=== PATIENT | female | born 1985 | race Caucasian/White ===

== ENCOUNTER → 2017-04-17 | Outpatient (CLI) | payer OTHER | LOC: FIMAGING 12:37 | PROVIDERS: ATTEND Obstetrics & Gynecology | DX: O36.63X0 Maternal care for excessive fetal growth, third trimester, not applicable or unspecified (principal); O24.419 Gestational diabetes mellitus in pregnancy, unspecified control; Z3A.35 35 weeks gestation of pregnancy ==

== ENCOUNTER 2017-05-08 06:00 | Inpatient (IN) | payer OTHER ==
[2017-05-08] MEDS ORDERED: OLIVE OIL 118 ML BTL MISC PRN (06:19)
[2017-05-08] MEDS ORDERED: EPSOM SALT 454 GM TP PRN (06:19)
[2017-05-08] MEDS ORDERED: OXYTOCIN 20 UNIT in LR 1,000 ML IV PRN (06:19)
[2017-05-08] MEDS ORDERED: MISOPROSTOL 200 MCG TAB PR PRN (06:19)
[2017-05-08] MEDS ORDERED: TERBUTALINE SULFATE 1 MG/ML VIAL IV PRN (06:19)
[2017-05-08 07:23] LABS: PLATELET COUNT 250 10^3/uL (150-400)
[2017-05-08] MEDS ORDERED: LR 500 ML IV PRN (08:08)
--- NOTE | 2017-05-08 08:08 | PDGENHP ---
History and Physical History and Physical: HPI: Patient is a 31 yo that presents to L&D for IOL 2/2 A2GDM. She denies any regular contractions. She states she is having irregular contractions, but are more intense. She denies any LOF, VB. She reports +FM. She denies any headaches, visual changes, epigastric pain. She did not take her insulin last night and 1hr PP upon arrival to hospital today was 128. EDC: 05/21/17 which is based on LMP: 08/14/16 which is known and consistent with Ultrasound at 8 weeks. Her is complicated by: A2GDM, macrosomia (98th%@34wks), h/o PP depression Review of Systems: Constitutional: Denies any fever, chills, or fatigue HEENT: denies any visual changes, difficulty swallowing, hearing loss Cardiovascular: Denies any chest pain, palpitations, leg swelling Respiratory: denies any cough, wheezing, or shortness of breathe GI: Denies any nausea, vomiting, diarrhea, constipation : denies any dysuria, urgency, frequency, vaginal bleeding Musculoskeletal: denies any muscle or bone pain Skin: denies any rashes Neuro: denies any headache, seizures, lightheadedness, dizziness, or loss of consciousness Psychiatric: denies any depression, anxiety, or SI/HI thoughts HISTORY: Previous OB history: x1, 8#4 Past medical history: h/o GDM, h/o PPD Past surgical history: oral surgery, arthroscopic right wrist Medications: PNV, NPH insulin Allergies (list reaction): NKDA LABS: Rh: A+ ABS: Neg Rubella: Immune HbsAg: NR HIV: NR VDRL: NR 1hr: 133 GC: Neg Chlamydia: Neg Pap: Normal GBS: neg BMI: (prepreg) 23 PHYSICAL EXAM: Constitutional: WN, A&Ox3 HEENT: normocephalic atraumatic, supple Heart: RRR, no murmur Chest: CTA-B Abdomen: Soft, nontender, gravid SVE: 4/th/high Extremities: trace edema, negative homans sign Neuro: grossly normal Psych: normal affect assessment: Reassuring FHTs, baseline 130 +accels, no decels, moderate variability Contractions: toco q none Assessment: 1) 31 yo [id number] IUP@ 38-1wks (L/8) 2) IOL 2/2 A2GDM 3) GBS negative 4) Cat 1 FHR tracing Plan: 1) Admit to L&D 2) pitocin per protocol 3) AROM 4) BS q 2 hr 5) anticipate discussed with Shanta Rapp- agrees with POC
[2017-05-08] MEDS ORDERED: OXYTOCIN 30 UNIT in NS 500 ML IV SCH (08:15)
[2017-05-08] MEDS: LR 1,000 ML IV PRN ×2 (08:47→19:16)
[2017-05-08] MEDS ORDERED: OLIVE OIL 118 ML BTL ONE (09:15)
[2017-05-08] MEDS ORDERED: LIDOCAINE 1% 300 MG/30 ML SDV ONE (09:15)
[2017-05-08] MEDS ORDERED: OXYTOCIN 10 UNIT/ML VIAL ONE (09:16)
[2017-05-08] MEDS ORDERED: AMMONIA AROMATIC 1 EACH AMP IH ONE (09:16)
[2017-05-08] MEDS ORDERED: MISOPROSTOL 200 MCG TAB ONE (09:16)
--- NOTE | 2017-05-08 12:10 | PDMN ---
Medical Necessity Medical necessity: Patient meets inpatient criteria per CNM note and IOL.
--- NOTE | 2017-05-08 13:41 | OBPROG ---
Labor Progress Note Assessment/Plan: Assessment: [id number] IOL 2/2 A2GDM pitocin induction cat 1 FHR tracing GBS Negative impending macrosomia Plan: cont pitocin cont BS q2hr ARCADIO when increasing pain with contractions AROM once ARCADIO in place anticipate 05/08/17 13:39 05/08/17 14:02 Subjective/Intrapartum Course: 05/08/17 13:40 pt doing well, reports pain 5/10 with contractions. She is planning ARCADIO, requesting no exam or AROM until ARCADIO in place. FOB @ BS and supportive. She is breathing through contractions. Denies any LOF, VB. She reports +FM. Denies any headaches, visual changes, epigastric pain. 05/08/17 14:01 Objective: 05/08/17 06:30 Patient ABO/Rh A POSITIVE 05/08/17 06:30 - Contraction Pattern Assessment Current Contraction Pattern: Regular - FHR Assessment Jaramillo FHR (bpm): 135 FHR Pattern Variability: Moderate FHR Category: 1 CNM Assessment - Uterine Assessment Contraction Strength: Moderate Uterine Resting Tone: Palpates Soft Between Uterine Contractions Contraction Frequency (minutes): 2-3 Oxytocin Orders Assessment - Pre-Induction/Augmentation Assessment Indication: IOL 2/2 A2GDM Presentation: Vertex Gestational Age: 38 week(s) and 1 day(s) Estimated Weight: 4401g + Membrane Status: Intact Current Sterile Vaginal Exam (SVE): 4/th/high - Heart Rate Pattern Jaramillo FHR Category: 1 FHR Pattern Variability: Moderate FHR Accelerations: Present - Barkley's Score Dilation: 3-4cm Effacement: 0-30 Station: -3 Cervix: Medium Cervix Position: Posterior Barkley Score Total: 3 - Induction/Augmentation Consent Risks/Benefits of Procedure Reviewed/Pt Agrees to Proceed: Yes ICD10 Worksheet Patient Problems: Problems Problem Status Onset Delivery normal Acute Elective induction of labor planned Acute Gestational diabetes Acute
--- NOTE | 2017-05-08 13:45 | PREANESOB ---
Obstetric Pre-Anesthesia Info - General Info Proposed Procedure: ARCADIO NPO Start Time: 12:00 : 2 Para: 1 MILA: 05/21/17 Gestational Age: 38 week(s) and 1 day(s) - Info Status: Full Term FHR Pattern: Reassuring - Labor Status Cervical Dilation per last OB SVE: 4 Pitocin: In Use PIH: No Magnesium Sulfate in Use: No Indications for Labor Analgesia: Induction of Labor, Pain Control Labor Epidural: Proposed Anesthesia Allergies/Adverse Reactions: Allergy/AdvReac Type Severity Reaction Status Date / Time No Known Allergies Allergy Unverified 09/22/14 06:24 Home Medications: Medication Instructions Recorded 1 tab PO DAILY 09/22/14 Visit Medications: Generic Name Dose Route Start Last Admin Trade Name Freq PRN Reason Stop Dose Admin Lactated Ringer's 1,000 mls @ 0 mls/hr 05/08/17 06:19 05/08/17 08:47 Lr IV 05/09/17 06:18 1,000 mls PRN PRN Administration SEE PROTOCOL CONDITIONS Protocol Per Protocol Oxytocin 20 unit/ Lactated 1,002 mls @ 150 mls/hr 05/08/17 06:19 Ringer's IV PRN PRN Post- bleeding Lactated Ringer's 500 mls @ 500 mls/hr 05/08/17 08:08 Lr IV 05/09/17 08:08 PRN PRN Maternal Hypotension Oxytocin 30 unit/ Sodium 503 mls @ 0 mls/hr 05/08/17 08:15 05/08/17 08:46 Chloride IV 11/04/17 08:14 503 mls CONT ERIKA Administration Protocol Per Protocol Ibuprofen 600 mg 05/08/17 06:19 Motrin PO 11/04/17 06:18 Q6HRS PRN post , inflammation Magnesium Sulfate 454 gm 05/08/17 06:19 Epsom Salt TP 11/04/17 06:18 Q1H PRN perineal discomfort Misoprostol 800 - 1,000 mcg 05/08/17 06:19 Cytotec WI ONCE PRN Vaginal Atony/Bleeding Buffalo Oil 118 ml 05/08/17 06:19 Sweet Oil MISC 11/04/17 06:18 ONCE PRN perineal massage Terbutaline Sulfate 0.25 mg 05/08/17 06:19 Brethine IV 11/04/17 06:18 ONCE PRN Tachysystole Discontinued Medications Generic Name Dose Route Start Last Admin Trade Name Ghislaine PRN Reason Stop Dose Admin Ammonia (Aromatic Spirit) Confirm 05/08/17 09:16 Ammonia Aromatic Administered 05/08/17 09:17 Dose 1 each IH .STK-MED ONE Lidocaine HCl Confirm 05/08/17 09:15 Lidocaine Hcl 1% Administered 05/08/17 09:16 Dose 300 mg .ROUTE .STK-MED ONE Misoprostol Confirm 05/08/17 09:16 Cytotec Administered 05/08/17 09:17 Dose 1,000 mcg .ROUTE .STK-MED ONE Buffalo Oil Confirm 05/08/17 09:15 Sweet Oil Administered 05/08/17 09:16 Dose 118 ml .ROUTE .STK-MED ONE Oxytocin Confirm 05/08/17 09:16 Pitocin Administered 05/08/17 09:17 Dose 20 unit .ROUTE .STK-MED ONE - Anesthesia History Response to Local Anesthetics: Normal Anesthesia & Operative History: No Prior Problems Family Anesthesia History: Negative - Vital Signs Height/Weight (Nursing): Height 167.64 cm Weight 80.739 kg - Focused Exam Neck exam: FROM Mallampati Score: Class 2 Mouth exam: normal dental/mouth exam Pulmonary: no respiratory distress Cardiovascular: regular rate and rhythym Labs: 05/08/17 06:30 Patient ABO/Rh A POSITIVE 05/08/17 06:30 - Plan Anesthetic Plan: ARCADIO for induction of labor Consent Signed and on Chart: Yes Patient/Guardian Understands and Agrees to Plan: Yes Urgent/Emergent Case: Crystal young completed preop but documented later for safe timely pt care
[2017-05-08] MEDS ORDERED: BUPIVACAINE 0.5% 30 ML SDV ONE (13:58)
[2017-05-08] MEDS ORDERED: PHENYLEPHRINE HCL 100 MCG/ML SYR ONE (13:59)
[2017-05-08] MEDS ORDERED: NALOXONE HCL 0.4 MG/ML INJ IVP PRN (14:00)
[2017-05-08] MEDS ORDERED: fentaNYL 2MCG/ML/BUP 0.1% RTU 100 ML EP SCH (14:00)
[2017-05-08] MEDS ORDERED: METOCLOPRAMIDE 10 MG/2 ML VIAL IVP PRN (14:00)
[2017-05-08] MEDS ORDERED: PHENYLEPHRINE HCL 100 MCG/ML SYR IVP PRN (14:00)
[2017-05-08] MEDS ORDERED: LR 500 ML IV SCH (14:00)
[2017-05-08] MEDS ORDERED: ONDANSETRON 4 MG/2 ML VIAL IVP PRN (14:00)
[2017-05-08] MEDS ORDERED: fentaNYL 200 MCG, BUPIVACAINE 0.5% 20 ML in NS 100 ML EP SCH (14:30)
--- NOTE | 2017-05-08 14:48 | POSTANESTH ---
Post Anesthetic Evaluation Cardiovascular Status: Normal, Stable Respiratory Status: Normal, Stable Level of Consciousness/Mental Status: Can Participate in Eval Pain Control: Adequate, Prn Tx Ordered Nausea/Vomiting Control: Adequate, Prn Tx Ordered Complications Possibly Related to Anesthesia: None Noted
--- NOTE | 2017-05-08 18:29 | OBPROG ---
Labor Progress Note Assessment/Plan: Assessment: [id number] IOL 2/2 A2GDM pitocin induction cat 1 FHR tracing GBS Negative impending macrosomia Plan: cont pitocin cont BS q2hr labor down/reassess 1-2hr anticipate 05/08/17 13:39 05/08/17 14:02 05/08/17 18:28 05/08/17 18:29 Subjective/Intrapartum Course: 05/08/17 13:40 pt doing well, reports pain 5/10 with contractions. She is planning ARCADIO, requesting no exam or AROM until ARCADIO in place. FOB @ BS and supportive. She is breathing through contractions. Denies any LOF, VB. She reports +FM. Denies any headaches, visual changes, epigastric pain. 05/08/17 14:01 05/08/17 18:27 Pt doing well, reports feeling some contractions, denies any pressure. FOB @ BS Objective: 05/08/17 06:30 Patient ABO/Rh A POSITIVE 05/08/17 06:30 - SVE Dilation (cm): 9 Effacement (%): 75 Station: 0 Membranes: AROM Amniotic Fluid Color: Clear - Contraction Pattern Assessment Current Contraction Pattern: Regular - FHR Assessment Jaramillo FHR (bpm): 135 FHR Pattern Variability: Moderate FHR Category: 1 - Procedures Non-surgical Procedures: Amniotomy (@ 1535) - Physical Exam Estimated Weight: 4401g + Oxytocin Orders Assessment - Pre-Induction/Augmentation Assessment Presentation: Vertex Gestational Age: 38 week(s) and 1 day(s) Estimated Weight: 4401g + ICD10 Worksheet Patient Problems: Problems Problem Status Onset Delivery normal Acute Elective induction of labor planned Acute Gestational diabetes Acute
--- NOTE | 2017-05-09 00:33 | OBPROG ---
Labor Progress Note Assessment/Plan: Assessment: [id number] IOL 2/2 A2GDM pitocin induction cat 1 FHR tracing GBS Negative impending macrosomia Plan: cont pitocin cont BS q2hr cont pushing, if no descent will proceed with C/S Subjective/Intrapartum Course: 05/08/17 13:40 pt doing well, reports pain 5/10 with contractions. She is planning ARCADIO, requesting no exam or AROM until ARCADIO in place. FOB @ BS and supportive. She is breathing through contractions. Denies any LOF, VB. She reports +FM. Denies any headaches, visual changes, epigastric pain. 05/08/17 14:01 05/08/17 18:27 Pt doing well, reports feeling some contractions, denies any pressure. FOB @ BS 05/09/17 23:01 Pt feeling intermittent pain and pressure with contractions. She is comfortable with ARCADIO. FOB at BS and supportive. Aware that with last episode of pushing no descent was made. Will cont to push at this time. Objective: 05/08/17 06:30 Patient ABO/Rh A POSITIVE 05/08/17 06:30 - SVE Dilation (cm): 10 Effacement (%): 100 Station: 0 Membranes: AROM Amniotic Fluid Color: Clear - Contraction Pattern Assessment Current Contraction Pattern: Regular - FHR Assessment Jaramillo FHR (bpm): 155 FHR Pattern Variability: Moderate FHR Category: 2 - Procedures Non-surgical Procedures: Amniotomy (@ 1535) - Physical Exam Estimated Weight: 4401g + Oxytocin Orders Assessment - Pre-Induction/Augmentation Assessment Presentation: Vertex Gestational Age: 38 week(s) and 1 day(s) Estimated Weight: 4401g + ICD10 Worksheet Patient Problems: Problems Problem Status Onset Delivery normal Acute Elective induction of labor planned Acute Gestational diabetes Acute
[2017-05-09] MEDS: IBUPROFEN 600 MG TAB PO PRN ×4 (00:38→18:54)
--- NOTE | 2017-05-09 00:40 | OBDEL ---
Info Type: Vaginal Presentation at Delivery: Vertex L&D Analgesia/Anesthesia Type: Epidural GBS+: No Intrapartum Medications: Generic Name Dose Route Start Last Admin Trade Name Ghislaine PRN Reason Stop Dose Admin Lactated Ringer's 1,000 mls @ 0 mls/hr 05/08/17 06:19 05/08/17 19:16 Lr IV 05/09/17 06:18 1,000 mls PRN PRN Administration SEE PROTOCOL CONDITIONS Protocol Per Protocol Oxytocin 30 unit/ Sodium 503 mls @ 0 mls/hr 05/08/17 08:15 05/08/17 08:46 Chloride IV 11/04/17 08:14 503 mls CONT ERIKA Administration Protocol Per Protocol Fentanyl 200 mcg/ Bupivacaine 100 mls @ 0 mls/hr 05/08/17 14:30 05/08/17 20: 37 HCl 20 ml/ Sodium Chloride EP 05/18/17 14:29 100 mls CONT ERIKA Administration Protocol As Directed Ondansetron HCl 4 mg 05/08/17 14:00 05/08/17 19:14 Zofran IVP 05/09/17 13:59 4 mg Q4HRS PRN Administration Nausea/Vomiting, Can't Take PO Phenylephrine HCl 100 mcg 05/08/17 14:00 05/08/17 19:38 Neosynephrine IVP 11/04/17 13:59 100 mcg .Q2M PRN Administration Hypotension - Hospital Course Intrapartum: 05/08/17 13:40 pt doing well, reports pain 5/10 with contractions. She is planning ARCADIO, requesting no exam or AROM until ARCADIO in place. FOB @ BS and supportive. She is breathing through contractions. Denies any LOF, VB. She reports +FM. Denies any headaches, visual changes, epigastric pain. 05/08/17 14:01 05/08/17 18:27 Pt doing well, reports feeling some contractions, denies any pressure. FOB @ BS 05/09/17 23:01 Pt feeling intermittent pain and pressure with contractions. She is comfortable with ARCADIO. FOB at BS and supportive. Aware that with last episode of pushing no descent was made. Will cont to push at this time. Indications for Delivery: Diabetes Gestational Poorly Controlled Vaginal Delivery - Delivery Provider Delivery Physician/CNM: Kassi Womack - Labor and Delivery Onset of Contractions Date: 05/08/17 Onset of Contractions Type: Induced Rupture of Membranes Date: 05/08/17 Rupture of Membranes Type: Artificial Amniotic Fluid Color: Clear Dilation Complete Date: 05/08/17 Placenta Delivery Date: 05/09/17 Non-surgical Procedures: Amniotomy (@ 1535) Laceration: 1st Degree Repair: 3-0 Vaginal Sponge Count Correct: Yes Vaginal Needle Count Correct: Yes Vaginal Sweep Performed: Yes EBL: 300 - Medications Labor Augmentation/Induction Methods Used: Pitocin Labor Augmentation/Induction Indication: Gestational Diabetes Data MILA: 05/21/17 Gestational Age: 38 week(s) and 2 day(s) Jaramillo Delivery Date: 05/08/17 Delivery Time: 23:50 Sex of : Female Weight (gm): 4062 kg Score (1 Min): 4 Score (5 Min): 3 ICD10 Worksheet Patient Problems: Problems Problem Status Onset (spontaneous vaginal delivery) Acute Delivery normal Acute Elective induction of labor planned Acute Gestational diabetes Acute - ICD10 Problem Qualifiers (1) (spontaneous vaginal delivery)
[2017-05-09] MEDS ORDERED: SIMETHICONE 80 MG TAB CHEW PO PRN (02:25)
[2017-05-09] MEDS ORDERED: HYDROCORTISONE 0.5% CREAM TP PRN (02:25)
[2017-05-09] MEDS ORDERED: HYDROCODONE/APAP 5/325 TAB PO PRN (02:25)
[2017-05-09] MEDS: DOCUSATE SODIUM 100 MG CAP PO PRN ×2 (12:05→21:42)
[2017-05-09] MEDS: ACETAMINOPHEN 325 MG TAB PO PRN ×2 (14:22→20:57)
--- NOTE | 2017-05-09 16:22 | POSTANESTH ---
Post Anesthetic Evaluation Cardiovascular Status: Normal, Stable Respiratory Status: Normal, Stable Level of Consciousness/Mental Status: Alert and Oriented Pain Control: Adequate, Prn Tx Ordered Nausea/Vomiting Control: Adequate, Prn Tx Ordered Complications Possibly Related to Anesthesia: Other, See Comments (States she has persistent numbness/tingling in her whole right foot. Denies any weakness, PEREZ, neck stiffness, fever, chills. Paresthesias not in a dermatomal distribution ; unlikely to be 2/2 nerve injury; advised patient this should self-resolve and if it does not, she should contact us.)
--- NOTE | 2017-05-09 16:29 | OBPP ---
Progress Note Assessment/Plan: Assessment: PPD1 (delivered 2350 last night) s/p - IOL for A2GDM on insulin. Routine cares - doing great, likely home tomorrow. A2GDM - No need for PP checks or insulin. Will need 6wk 75g 2 hr GTT. RhoGam/Varivax/MMR if indicated. H/o PP depression, will monitor. ROMA 05/09/17 16:30 Subjective/ Course: 05/09/17 16:27 Feeling good, pain controlled, , up and around, tolerating diet. No BM yet, but voiding. Objective: 05/08/17 06:30 Patient ABO/Rh A POSITIVE 05/08/17 06:30 Temp Pulse Resp BP Pulse Ox 36.4 C 86 16 120/67 05/09/17 09:06 05/09/17 09:06 05/09/17 09:06 05/09/17 09:06 Uterine Position/Fundal Height: At Umbilicus Uterine Tone: Firm
[2017-05-10] MEDS: IBUPROFEN 600 MG TAB PO PRN ×2 (00:54→08:48)
[2017-05-10] MEDS: ACETAMINOPHEN 325 MG TAB PO PRN (04:54)
[2017-05-10 08:24] VITALS: BP 119/62
[2017-05-10] MEDS: DOCUSATE SODIUM 100 MG CAP PO PRN (08:52)
--- NOTE | 2017-05-10 08:57 | OBPP ---
Progress Note Assessment/Plan: Assessment: 31 yo PPD #2 s/p - doing well. Plan: DC home today. DC instructions reviewed. Ssx pp depression reviewed. Encouraged to meet with therapist. See DC summary. 05/10/17 08:54 Subjective/ Course: 05/09/17 16:27 Feeling good, pain controlled, , up and around, tolerating diet. No BM yet, but voiding. 05/10/17 08:53 Doing well. Ambulating, voiding, and saravanan reg diet without issue. Still has some numbness in R foot, but has significantly improved - was evaluated by anesthesiologist yesterday. Desires homegoing today. Hx of depression and PTSD , does have her own therapist. Objective: 05/10/17 05:00 Patient ABO/Rh A POSITIVE 05/08/17 06:30 Temp Pulse Resp BP Pulse Ox 36.6 C 94 16 119/62 93 05/10/17 08:00 05/10/17 08:00 05/10/17 08:00 05/10/17 08:00 05/10/17 08:00 gen - pleasant female, NAD cv - rrr chest - ctab ext - calves NT, trace edema 1 hour postprandial sugar about to be checked. Uterine Position/Fundal Height: Umbilicus -3 Uterine Tone: Firm
--- NOTE | 2017-05-19 03:06 | OBGCSDC ---
General Delivery Information - General Info : 2 Para: 2 Abortions: 0 Type: Vaginal L&D Analgesia/Anesthesia Type: Epidural Admission Date: 05/08/17 Labs: Patient ABO/Rh A POSITIVE 05/08/17 06:30 Hct 38.6 % (38.0-47.0) 05/10/17 05:00 - Hospital Course Intrapartum: 05/08/17 13:40 pt doing well, reports pain 5/10 with contractions. She is planning ARCADIO, requesting no exam or AROM until ARCADIO in place. FOB @ BS and supportive. She is breathing through contractions. Denies any LOF, VB. She reports +FM. Denies any headaches, visual changes, epigastric pain. 05/08/17 14:01 05/08/17 18:27 Pt doing well, reports feeling some contractions, denies any pressure. FOB @ BS 05/09/17 23:01 Pt feeling intermittent pain and pressure with contractions. She is comfortable with ARCADIO. FOB at BS and supportive. Aware that with last episode of pushing no descent was made. Will cont to push at this time. : 05/09/17 16:27 Feeling good, pain controlled, , up and around, tolerating diet. No BM yet, but voiding. 05/10/17 08:53 Doing well. Ambulating, voiding, and saravanan reg diet without issue. Still has some numbness in R foot, but has significantly improved - was evaluated by anesthesiologist yesterday. Desires homegoing today. Hx of depression and PTSD , does have her own therapist. Vaginal - Delivery Provider Delivery Physician/CNM: Kassi Womack - Diagnosis Labor: Induced Rupture of Membranes Type: Artificial Amniotic Fluid Color: Clear Laceration: 1st Degree Repair: 3-0 - Procedures Non-surgical Procedures: Amniotomy (@ 1535) - Delivery Non-surgical Procedures: Amniotomy (@ 1535) EBL: 300 Data MILA: 05/21/17 Gestational Age: 39 week(s) and 5 day(s) Jaramillo Delivery Date: 05/08/17 Delivery Time: 23:50 Sex of : Female [place] Weight (gm): 4062 g Score (1 Min): 8 Score (5 Min): 8 Discharge Information - Discharge Information Condition: Good Instruction/Follow Up: Four Weeks (therapy - [facility]), Six Weeks (pp check)
== END 2017-05-10 11:00 | disposition home or self-care (01) | DRG 775 ==
LOC: FLD 06:06 → FOB 05-09 11:00
PROVIDERS: ADMIT Hospitalist; ATTEND Hospitalist
PROC: 3E033VJ Introduction of Other Hormone into Peripheral Vein, Percutaneous Approach (ICD-10-PCS; principal; 2017-05-08)
PROC: 10907ZC Drainage of Amniotic Fluid, Therapeutic from Products of Conception, Via Natural or Artificial Opening (ICD-10-PCS; principal; 2017-05-08)
PROC: 0HQ9XZZ Repair Perineum Skin, External Approach (ICD-10-PCS; principal; 2017-05-08)
PROC: 10E0XZZ Delivery of Products of Conception, External Approach (ICD-10-PCS; principal; 2017-05-08)
DX: O24.414 Gestational diabetes mellitus in pregnancy, insulin controlled (principal); O70.0 First degree perineal laceration during delivery; O36.63X0 Maternal care for excessive fetal growth, third trimester, not applicable or unspecified; Z3A.38 38 weeks gestation of pregnancy; Z37.0 Single live birth
CPT/HCPCS: J2370; J2405; J2590; J3010